=== PATIENT | male | born 1985 | race Caucasian/White ===

== ENCOUNTER 2016-10-24 12:59 | Emergency (ER) | payer OTHER ==
[2016-10-24 13:00] VITALS: TEMP 97.6
[2016-10-24 13:06] VITALS: BMI 26.5
[2016-10-24 14:20] VITALS: BP 144/81; PULSE 62
--- NOTE | 2016-10-24 14:20 | EDPRACDOC ---
- General Information Chief Complaint: Headache Stated Complaint: HEADACHE X5 DAYS - GENERALIZED BODY ACHES Time Seen by Provider: 10/24/16 13:58 Mode Of Arrival: Car Home Medications: Home Medications Butalb/Acetamin/Caffeine [Fioricet] 1 each PO Q4-6H #10 tab 10/24/16 Meloxicam [Mobic] 7.5 mg PO BID #20 tab 10/24/16 Allergies/Adverse Reactions: Allergies Allergy/AdvReac Type Severity Reaction Status Date / Time No Known Allergies Allergy Verified 10/24/16 13:05 - History of Present Illness Onset: 5 days HPI: PT PRESENTS TODAY WITH A MULTITUDE OF COMPLAINTS. MILD, FRONTAL MIGRAINE THAT BEGAN YESTERDAY. SHARP PAINS TO FOREARM, CHEST WALL, LOWER ABDOMEN THAT LASTS A FEW SECONDS, THEN DISAPPEAR. DENIES FEVER, VISUAL CHANGES, DIZZINESS, ENT SYMPTOMS, NECK PAIN, CP, SHOB, N/V/D, DYSURIA. NO PMH/MEDS/SBI/SURGERIES. Location: Reports: Frontal Pain Quality: Reports: Mild, Throbbing Relevant History of: Reports: None Associated Signs and Symptoms: Reports: Occasional Headache, Other ED Past Medical History - History Reviewed Yes Nurses notes reviewed and agree except as marked - Patient Medical History GI/ History: Reports: Gastroesophageal Reflux Psychological History: Denies: Depression - Social Medical History Smoking Status: Never smoker EDM Review of Systems - Review of Systems ROS Negative Except as Marked: Yes All systems reviewed and were negative except as marked Constitutional: No Symptoms Reported Eyes: No Symptoms Reported Ears: No Symptoms Reported Throat: No Symptoms Reported Nose: No Symptoms Reported Respiratory: No Symptoms Reported Cardiovascular: No Symptoms Reported Gastrointestinal: No Symptoms Reported Neurological: Headache Musculoskeletal: Other ("PAINS") Integumentary: No Symptoms Reported - Physical Exam Constitutional: Alert (Awake), No apparent distress Oriented to: Time, Person, Place Last recorded Vital Signs: Last Vital Signs Temp 97.6 F 10/24/16 13:00 Pulse 66 10/24/16 13:00 Resp 18 10/24/16 13:00 BP 150/97 10/24/16 13:00 Pulse Ox 100 10/24/16 13:00 Oxygen Pulse Oxygen Saturation 100 O2 Device Room Air Oxygen Flow Rate Fraction of Inspired Oxygen ( FIO2) - HEENT Head: Normal Eye Exam: Normal Oropharynx: Normal Tympanic Membrane: Normal ENT EAC: Normal Nose: No Symptoms Reported Neck: Normal, Denies Pain, Midline - Respiratory/Cardiovascular Respiratory: Normal - CTA Cardiovascular: Normal - GI Palpation: Normal Tenderness: Non tender - Musculoskeletal Back: Normal Extremities: Normal - Integumentary Skin: Normal Lymphatics: Normal - Neurologic Cerebellar: Normal Mood Description: Normal Thought: Coherent Perception: Normal - Additional Information OFFERED LAB WORK AND IMAGING, PT DECLINED; WILL ATTEMPT TO TREAT SYMPTOMS AND HAVE FOLLOW UP . Decision Time to Discharge: 14:19 - Departure Disposition: Home Condition: Stable Final Diagnosis: Headache Instructions: Acute Headache (ED) Education/Counseling Given To: Patient Education/Counseling Given Regarding: Diagnosis, Treatment, Follow Up Referrals: None,No Provider [Primary Care Provider] - One Week SUZIE CRAVEN [NonStaff] - One Week Aurelio Gaxiola II, MD [Staff Physician] - One Week Prescriptions: New Butalb/Acetamin/Caffeine [Fioricet] 1 each PO Q4-6H #10 tab Meloxicam [Mobic] 7.5 mg PO BID #20 tab Additional Instructions: REST AND PLENTY OF FLUIDS. IF SYMPTOMS PERSIST, FOLLOW UP WITH PCP.
== END 2016-10-24 14:27 | disposition home or self-care (01) ==
LOC: EDMC 12:59
DX: R51 Headache (principal)
CPT/HCPCS: 99283